=== PATIENT | male | born 1980 | race Caucasian/White ===

== ENCOUNTER 2019-05-19 07:08 | Observation (INO) ==
[2019-05-19] MEDS ORDERED: ALBUTEROL/IPRATROPIUM 3 ML NEB RESP TX STA (07:55)
[2019-05-19] MEDS ORDERED: MAGNESIUM SULF RIDER 2 GM in PREMIX 1 EACH IV STA (07:55)
[2019-05-19] MEDS ORDERED: ASPIRIN 325 MG TABLET PO STA (07:55)
[2019-05-19 08:13] LABS: Basophils # 0.1 10*3/uL (0.0-0.2); Basophils % 0.5 % (0.0-0.8); Eosinophils # 0.3 10*3/uL (0.0-0.87); Hematocrit 45.9 VOL% (42.0-52.0); Hemoglobin 14.8 GM/DL (14.0-18.0); Immature Granulocytes % 0.3 %; Immature Granulocytes Absolute 0.03 #; Lymphocytes # 1.2 10*3/uL (1.4-4.0); Lymphocytes % 10.4 % (21.2-54.2); Mean Corpuscular HGB Conc 32.2 GM/DL (32-36); Neutrophils % 76.8 % (38.7-73.9); Platelet Count 255 T/CUMM (130-400); Red Blood Count 4.99 MC/CUMM (3.8-5.5); Red Cell Distribution Width 13.7 % (9.3-17.3); White Blood Count 11.5 T/CUMM (4-12)
[2019-05-19 08:17] LABS: Alanine Aminotransferase 80 U/L (16-61); Albumin 3.8 G/DL (3.4-5.0); Alkaline Phosphatase 146 U/L (45-117); Aspartate Amino Transferase 32 U/L (0-37); Bilirubin,Total < 0.39 MG/DL (0.2-1.0); Blood Urea Nitrogen 16 MG/DL (7-18); Calcium 9.3 MG/DL (8.5-10.1); Estimated Glom Filtration Rate 131 ML/MIN; Glucose 136 MG/DL (74-106); Osmolality,Calculated 275.8 MOS/KG (273-304)
[2019-05-19 08:20] LABS: INR 0.9
[2019-05-19 09:35] LABS: Apearance,Urine CLEAR (Clear); Bilirubin,Urine Negative (Negative); Blood, Urine Negative (Negative); Glucose,Urine (UA) Negative (Negative); Ketones,Urine Negative (Negative); Mucus,Urine Occasional /LPF (Occasional); Nitrite,Urine Negative (Negative); Protein,Urine Negative; RBC,Urine 2 /HPF (0-4); Squamous Epithelial Cell,Urine Occasional /HPF (0-10); Urine Color Yellow (Yellow); Urine Specific Gravity 1.019 (1.001-1.035); Urine Urobilinogen < 2.0 EU/DL (0.2-1.0); WBC,Urine <1 /HPF (0-6)
[2019-05-19 09:43] LABS: Barbiturates Screen,Urine Negative (Negative); Benzodiazepines Screen,Urine Negative (Negative); Cannabinoid Screen,Urine Negative (Negative); Opiate Screen,Urine Negative (Negative); Phencyclidine Screen,Urine Negative (Negative)
[2019-05-19] MEDS ORDERED: NITROGLYCERIN SL 0.4 MG TABLET SL PRN (10:25)
[2019-05-19] MEDS ORDERED: ACETAMINOPHEN 325 MG TABLET PO PRN (10:25)
[2019-05-19] MEDS ORDERED: MORPHINE 4 MG/1 ML VIAL IV PRN (10:25)
[2019-05-19] MEDS ORDERED: MAGNESIUM HYDROXIDE SUSP 30 ML UDCUP PO PRN (10:25)
[2019-05-19] MEDS ORDERED: BISACODYL 5 MG TABLET PO PRN (10:25)
[2019-05-19] MEDS ORDERED: GLUCAGON 1 MG VIAL IM PRN (10:25)
[2019-05-19] MEDS ORDERED: ONDANSETRON 4 MG/2 ML VIAL IV PRN (10:25)
[2019-05-19] MEDS ORDERED: DEXTROSE 10% 250 ML BAG IV PRN (10:25)
[2019-05-19] MEDS ORDERED: ALBUTEROL 2.5 MG/3 ML NEB RESP TX PRN (10:35)
[2019-05-19] MEDS: ENOXAPARIN 40 MG/0.4 ML SYRINGE SUBCUT SCH (11:58)
[2019-05-19] MEDS ORDERED: HydrOXYzine PAMOATE 50 MG CAPSULE PO PRN (16:29)
[2019-05-19] MEDS ORDERED: HydrOXYzine PAMOATE 25 MG CAPSULE PO ONE (16:47)
[2019-05-19 17:27] LABS: Troponin I < 0.015 NG/ML (0.00-0.045)
[2019-05-19] MEDS ORDERED: ATORVASTATIN 40 MG TABLET PO SCH (21:00)
[2019-05-19] MEDS: METOPROLOL TARTRATE 25 MG TABLET PO SCH (21:01)
[2019-05-20 05:07] LABS: Risk Ratio 5.23; VLDL CHOLESTEROL 50.4 MG/DL
[2019-05-20 08:02] LABS: Hepatitis B Core IgM Quant 0.14 Index; Hepatitis B Surface Ag Quant < 0.10 Index; Hepatitis B Surface Ag Result Negative (Negative); Hepatitis C Virus Ab Quant < 0.02 Index; Hepatitis C Virus Ab Result Negative (Negative)
[2019-05-20] MEDS ORDERED: ASPIRIN EC 325 MG TABLET PO SCH (09:00)
[2019-05-20] MEDS: METOPROLOL TARTRATE 25 MG TABLET PO SCH (09:57)
[2019-05-20] MEDS: ENOXAPARIN 40 MG/0.4 ML SYRINGE SUBCUT SCH (12:37)
[2019-05-20 13:15] LABS: Troponin I < 0.015 NG/ML (0.00-0.045)
[2019-05-20 16:42] VITALS: BP 99/70
[2019-05-20] MEDS ORDERED: SERTRALINE 25 MG TABLET PO SCH (21:00)
[2019-05-20] MEDS ORDERED: OMEGA 3 ACID ETHYL ESTERS 1 GM CAPSULE PO SCH (21:00)
== END 2019-05-20 17:25 | disposition home or self-care (01) ==
LOC: N.EDINP 07:08 → N.ED 07:08 → N.2W 12:14
PROVIDERS: ADMIT Internal Medicine; ATTEND Internal Medicine